=== PATIENT | female | born 1985 | race Asian ===

== ENCOUNTER 2017-01-04 10:52 | Emergency (ER) | payer OTHER ==
[~2017-01-04] VITALS: Ht 162.6 cm; Wt 74.4 kg
[2017-01-04 10:54] VITALS: BP 129/81
[2017-01-04 11:30] LABS: UA SPECIFIC GRAVITY >=1.030 (1.005-1.035); microscopic required? YES; urine erythrocyte 3+ (NEGATIVE)
== END 2017-01-04 13:50 | disposition home or self-care (01) ==
LOC: ED 10:52
DX: R10.13 Epigastric pain (principal); N39.0 Urinary tract infection, site not specified

== ENCOUNTER 2018-07-27 13:30 | Emergency (ER) | payer OTHER ==
[~2018-07-27] VITALS: Ht 162.6 cm; Wt 77.8 kg
[2018-07-27 13:34] VITALS: BP 152/87
== END 2018-07-27 15:47 | disposition home or self-care (01) ==
LOC: ED 13:30
DX: R20.2 Paresthesia of skin (principal); M54.2 Cervicalgia; H66.92 Otitis media, unspecified, left ear

== ENCOUNTER 2019-01-10 20:04 | Emergency (ER) | payer OTHER ==
[~2019-01-10] VITALS: Ht 162.6 cm; Wt 79.1 kg
[2019-01-10 20:22] VITALS: Ht 162.6 cm; Wt 79.1 kg
[2019-01-10 21:13] LABS: UA SPECIFIC GRAVITY >1.030 (1.005-1.035)
[2019-01-10 21:14] LABS: microscopic required? YES; urine erythrocyte TRACE (NEGATIVE)
[2019-01-10 22:58] VITALS: BP 123/78
== END 2019-01-10 22:58 | disposition home or self-care (01) ==
LOC: ED 20:04
PROVIDERS: Emergency Medicine
DX: R50.9 Fever, unspecified (principal); M79.10 Myalgia, unspecified site; R09.81 Nasal congestion
CPT/HCPCS: 87804